=== PATIENT | female | born 1960 | race Hispanic/Latino ===

== ENCOUNTER → 2018-11-09 | Day surgery (SDC) | payer BC ==
--- OUTSIDE RECORDS SUMMARY | 2018-11-09 09:33 | XMS REPORT ---
:1960 [facility] Address [address] [place] [address] [address]. [address] [place] [address] Care Team Providers Name Role Phone Unavailable Unavailable Unavailable Problems This patient has no known problems. Allergies, Adverse Reactions, Alerts This patient has no known allergies or adverse reactions. Medications This patient has no known medications.
--- NOTE | 2018-11-09 10:53 | RAD REPORT ---
EXAM DESCRIPTION: US - Guided FNA Non Breast - 11/09/2018 10:24 am CLINICAL HISTORY: E04.1 COMPARISON: No comparisons FINDINGS: Preoperative diagnosis: Right thyroid nodule.. Post operative diagnosis: Same. Conscious Sedation: None Fluoroscopy time: None Contrast used: None Estimated blood loss: Minimal Specimens:5 x 25 gauge FNA sample The right neck was prepped and draped in the usual sterile fashion. 1% lidocaine was infiltrated into the subcutaneous tissues for local anesthesia. Real time ultrasound scanning of the right thyroid de monstrated peripherally calcified 1-2 cm nodule. Under ultrasound guidance, using multiple 25 gauge F NA needles, 5 specimens were obtained of this lesion and sent to pathology for evaluation. There were no complications. IMPRESSION: Successful ultrasound-guided right thyroid nodule FNA procedure.
== END ==
LOC: FNA 09:31
PROVIDERS: ATTEND Otolaryngology
DX: E04.1 Nontoxic single thyroid nodule (principal)
CPT/HCPCS: 88162

== ENCOUNTER → 2019-02-08 | Day surgery (SDC) | payer BC ==
--- OUTSIDE RECORDS SUMMARY | 2019-02-08 09:39 | XMS REPORT ---
:1960 [facility] [address] [place] [address] Dr. Srivastava. [address] [place] [address] Care Team Providers Name Role Phone Unavailable Unavailable Unavailable Problems This patient has no known problems. Allergies, Adverse Reactions, Alerts This patient has no known allergies or adverse reactions. Medications This patient has no known medications.
--- NOTE | 2019-02-08 12:37 | RAD REPORT ---
EXAM DESCRIPTION: US - Guided FNA Non Breast - 02/08/2019 11:34 am CLINICAL HISTORY: E04.1 COMPARISON: Thyroid FNA procedure October 2008 TECHNIQUE: Patient presents for repeat fine-needle aspiration of the dominant right thyroid nodule. Prior imaging and pathology was reviewed. The procedure, risks and alternatives to the procedure were discussed with the patient in detail. Aft er answering all questions, both oral and written consent were obtained. Patient had no contraindicat ed allergy or medication history. Time-out procedure was performed. Preliminary imaging again identified the dominant right thyroid nodule. Nodule is 12-13 mm in diamete r and shows a 1 millimeter thick densely calcified rim. . The anterior right neck was prepped and draped in the usual sterile fashion. Skin and deeper tissues were anesthetized with 1% lidocaine. Additional lidocaine was administered subsequently during the ex amination. Under direct sonographic visualization a 25 gauge needle was advanced through the soft tissues with t he needle tip seen to penetrate the periphery of this nodule. The calcified rim was difficult to pene trate with the needle. The nodule displaced medially and posteriorly when pressure was applied with t he needle tip. Multiple to and fro excursions of the needle tip performed. There were for additional FNA procedures performed using the same technique. Again, the outer densely calcified capsule was dif ficult to penetrate. A preliminary cytology report was requested from the pathologist. As was seen previously the aspirate was primarily blood. Minimal additional cellularity was observed. After consultation with the pathol ogist, an additional aspiration was requested. The aspiration procedure was repeated using a 25 gauge needle and an aspiration syringe. The patient was in more discomfort on this final aspirate. Movement and dry swallowing resulted in mo vement of the nodule making it difficult to obtain penetration of the nodule in good sampling on the spinal attempt. Throughout the examination, attempts to aspirate the peripheral capsule was difficult and limited due to the dense calcification and displacement of the nodule with needle tip pressure. The patient was in some degree of discomfort throughout the procedure. Postprocedure care and precaut ion instructions were given to the patient to control or mitigate pain. Post aspiration imaging showe d no hematoma or mass. IMPRESSION: Fine-needle aspiration was performed of the densely rim calcified nodule as detailed abo ve. All obtained material was given to pathology for cytology/ histology assessment. No hematoma or other complication encountered. The patient was in pain during and at the conclusion o f the procedure. Postprocedure pain control and care/precaution instructions were given to the patien t at the conclusion of the procedure.
== END ==
LOC: FNA 09:32
PROVIDERS: ATTEND Otolaryngology
PROC: 0G9H3ZX Drainage of Right Thyroid Gland Lobe, Percutaneous Approach, Diagnostic (ICD-10-PCS; principal; 2019-02-08)
PROC: BG44ZZZ Ultrasonography of Thyroid Gland (ICD-10-PCS; 2019-02-08)
DX: E04.1 Nontoxic single thyroid nodule (principal)
CPT/HCPCS: 88162